=== PATIENT | male | born 1980 | race Caucasian/White ===

== ENCOUNTER 2017-05-09 18:31 | Emergency (ER) | payer BC, OTHER ==
[2017-05-09] MEDS ORDERED: ALPRAZolam 0.5 MG Tab PO ONE (19:26)
--- NOTE | 2017-05-09 19:31 | EDM.PDOCBH ---
ED HPI GENERAL MEDICAL PROBLEM - General Chief Complaint: Behavioral/Psych Stated Complaint: PANIC ATTACK Time Seen by Provider: 05/09/17 19:13 Source of Information: Reports: Patient, RN Notes Reviewed - History of Present Illness INITIAL COMMENTS - FREE TEXT/NARRATIVE: HISTORY AND PHYSICAL: History of present illness: [36-year-old male with a history of PTSD depression and severe anxiety now presents to the emergency department complaining of attack of anxiety and panic after having a nightmare. Patient does night shifts. He was sleeping earlier today when he had a nightmare and awakened and panic. He's been unable to relax so he came to the emergency department. Patient states he is depressed consistent with his baseline but is not suicidal. He is not abusing drugs he has not overdosed or injured himself in any way. Patient states he is able to function but he just been unable to relax since that event. He describes he seen at the [facility] and they are not willing to prescribe him any medications for his anxiety other than his antidepressant regimen. Review of systems: As per history of present illness and below otherwise all systems reviewed and negative. Past medical history: As per history of present illness and as reviewed below otherwise noncontributory. Surgical history: As per history of present illness and as reviewed below otherwise noncontributory. Social history: No reported history of drug or alcohol abuse. Family history: As per history of present illness and as reviewed below otherwise noncontributory. Physical exam: Anxious appearing 36-year-old male in no acute distress alert communicative cooperative but visibly anxious. Patient is a nonfocal exam including extended neuro exam. No evidence of self injury HEENT: Atraumatic, normocephalic, pupils reactive, negative for conjunctival pallor or scleral icterus, mucous membranes moist, throat clear, neck supple, nontender, trachea midline. Lungs: Clear to auscultation, breath sounds equal bilaterally, chest nontender. Heart: S1S2, regular, negative for clicks, rubs, or JVD. Abdomen: Soft, nondistended, nontender. Negative for masses or hepatosplenomegaly. Negative for costovertebral tenderness. Pelvis: Stable nontender. Genitourinary: Deferred. Rectal: Deferred. Extremities: Atraumatic, negative for cords or calf pain. Neurovascular unremarkable. Neuro: Awake, alert, oriented. Cranial nerves II through XII unremarkable. Cerebellum unremarkable. Motor and sensory unremarkable throughout. Exam nonfocal. Diagnostics: [] Therapeutics: []Xanax by mouth Impression: [] Plan: [Signs and symptoms consistent with exacerbation of anxiety in a patient with a known history of the same. Xanax given in ED. Patient aware not to drive. Discussed with patient will give prescription for 5 pills of (.5)Mg Xanax to use only as needed for severe anxiety unrelieved by conscious efforts to relax and other medications in his regimen. No further workup or treatment indicated. He agrees the patient follow-up and strict return precautions given Definitive disposition and diagnosis as appropriate pending reevaluation and review of above. throat Pain Score (Numeric/FACES): 5 - Related Data Allergies Allergy/AdvReac Type Severity Reaction Status Date / Time No Known Allergies Allergy Verified 05/09/17 18:43 Home Meds: Home Meds ALPRAZolam [Xanax] 0.5 mg PO BEDTIME PRN #5 tablet 05/09/17 [Rx] Past Medical History Psychiatric History: Reports: Depression, PTSD Oncologic (Cancer) History: Reports: Other (See Below) Other Oncologic History: CA - Infectious Disease History Infectious Disease History: Reports: Chicken Pox - Past Surgical History Male Surgical History: Reports: Other (See Below) Other Male Surgeries/Procedures: testicular removal for CA Social & Family History - Family History Family Medical History: Noncontributory - Tobacco Use Years of Tobacco use: 17 Packs/Tins Daily: 1.5 - Caffeine Use Caffeine Use: Reports: Coffee - Recreational Drug Use Recreational Drug Use: No ED ROS GENERAL - Review of Systems Review Of Systems: See Below (History of present illness) ED EXAM, BEHAVIORAL HEALTH - Physical Exam Exam: See Below (History of present illness) COURSE, BEHAVIORAL HEALTH COMP - Course Vital Signs: Last Vital Signs Temp 37.1 C 05/09/17 18:44 Pulse 77 05/09/17 18:44 Resp 16 05/09/17 18:44 BP 159/103 H 05/09/17 18:44 Pulse Ox 96 05/09/17 18:44 Orders, Labs, Meds: Medications Discontinued Medications Generic Name Dose Route Start Last Admin Trade Name Freq PRN Reason Stop Dose Admin Alprazolam 1 mg 05/09/17 19:26 05/09/17 19:31 Xanax PO 05/09/17 19:27 1 mg NOW ONE Administration Departure - Departure Time of Disposition: 19:27 Disposition: Home, Self-Care 01 Condition: Good Clinical Impression: Anxiety, Panic disorder - Discharge Information Prescriptions: ALPRAZolam [Xanax] 0.5 mg PO BEDTIME PRN #5 tablet PRN Reason: Anxiety Instructions: Panic Attacks, [id number] Referrals: PCP,None [Primary Care Provider] - Forms: ED Department Discharge Additional Instructions: You suffer from anxiety and panic disorder. The nightmare that you experience precipitated a panic attack. We've given you a dose of Xanax a benzodiazepine to help you relax and to relieve your anxiety.. We have Given you a prescription for 5 Xanax. Take 1 as needed only when you're having a panic attack which will not resolve with a conscious effort to calm yourself through meditation and deep breathing. Follow-up with your Dr. to discuss whether a small dose of benzodiazepine might be useful for you for use as needed when you might otherwise have to come to the emergency department for your panic and anxiety. Return immediately for new severe or worsening symptoms or if you think you may be a danger to yourself or others
[2017-05-09 20:14] VITALS: BP 149/108
== END 2017-05-09 20:00 | disposition home or self-care (01) ==
LOC: MW.ED 18:31
DX: F41.0 Panic disorder [episodic paroxysmal anxiety] (principal)
CPT/HCPCS: 99283; A9270; 99282

== ENCOUNTER 2017-05-25 09:37 | Emergency (ER) | payer OTHER ==
--- NOTE | 2017-05-25 10:20 | EDM.PDOC ---
ED HPI GENERAL MEDICAL PROBLEM - General Chief Complaint: ENT Problem Stated Complaint: THROAT SOLLOWEN Time Seen by Provider: 05/25/17 10:00 Source of Information: Reports: Patient History Limitations: Reports: No Limitations - History of Present Illness INITIAL COMMENTS - FREE TEXT/NARRATIVE: HISTORY AND PHYSICAL: History of present illness: 36-year-old male presenting with a past medical history significant for anxiety, PTSD, ENT related issues. Patient states that he is having difficulty swallowing, unable to intake solid foods. Patient states that this has been going on for the past 2 years. He has been evaluated multiple times however he has yet to see an ENT specialist for his related issues. Patient states that yesterday evening while driving he started to have difficulty swallowing, and breathing. He did not have any anxiety related medication. The difficulty swallowing and breathing alleviated after short while. Then again this morning he had difficulty swallowing which is similar to what he's been expressing for the past 2 years. She states that he is to see a [place] physician this Thursday for his ENT related problems. Patient denies any change in voice/hot potato type voice, trismus, drooling, no fevers, chills, and nausea, vomiting, diarrhea, constipation. Patient denies any shortness of breath wheezing. Patient denies being on any medication. Patient denies smoking, alcohol, illicit drug use recently. Patient states that he had similar problems back in April when he was seen in the ER for anxiety and difficulty swallowing he was given Xanax a short-term course which did help him, however due to his work schedule he was unable to see her primary care physician until 29 May. Review of systems: As per history of present illness and below otherwise all systems reviewed and negative. Past medical history: As per history of present illness and as reviewed below otherwise noncontributory. Surgical history: As per history of present illness and as reviewed below otherwise noncontributory. Social history: No reported history of drug or alcohol abuse. Family history: As per history of present illness and as reviewed below otherwise noncontributory. Physical exam: HEENT: Atraumatic, normocephalic, pupils reactive, negative for conjunctival pallor or scleral icterus, mucous membranes moist, throat clear, neck supple, nontender, trachea midline. No trismus, drooling, hot potato voice, erythema/ pharyngitis appreciated Lungs: Clear to auscultation, breath sounds equal bilaterally, chest nontender. Heart: S1S2, regular, negative for clicks, rubs, or JVD. Abdomen: Soft, nondistended, nontender. Negative for masses or hepatosplenomegaly. Negative for costovertebral tenderness. Extremities: Atraumatic, negative for cords or calf pain. Neurovascular unremarkable. Neuro: Awake, alert, oriented. Cranial nerves II through XII unremarkable. Cerebellum unremarkable. Motor and sensory unremarkable throughout. Exam nonfocal. Diagnostics: Therapeutics: Impression: 36-year-old male with significant past medical history of anxiety and PTSD not on any anxiety medication at the moment presenting with ongoing complaints of difficulty swallowing, issue is chronic in nature, most likely etiology is difficulty swallowing secondary to anxiety displaced on patient not having any presenting symptoms of trismus, drooling, change in voice, fevers, or any other systemic findings. Plan: Patient to follow-up with primary care physician in [place], as well as referral to ENT. I will give the patient Xanax for his anxiety 0.5 mg for 4 days up until he sees a physician in [place] as this did help him when he was previously seen in the ER in April. I will have emphasized to the patient that he must see an ENT specialist in order to have his difficulty swallowing issues fully assessed and diagnosed. I have set up an appointment for the patient to see Dr. Rosy Mcadams who is an ENT specialist here in [place]. Definitive disposition and diagnosis as appropriate pending reevaluation and review of above. Throat Pain Score (Numeric/FACES): 7 - Related Data Allergies Allergy/AdvReac Type Severity Reaction Status Date / Time No Known Allergies Allergy Verified 05/25/17 09:52 Home Meds: Home Meds ALPRAZolam [Xanax] 0.5 mg PO Q8HR PRN #16 tablet 05/25/17 [Rx] Past Medical History - Past Health History Medical/Surgical History: Denies Medical/Surgical History Psychiatric History: Reports: Depression, PTSD Oncologic (Cancer) History: Reports: Other (See Below) Other Oncologic History: CA - Infectious Disease History Infectious Disease History: Reports: Chicken Pox - Past Surgical History Male Surgical History: Reports: Other (See Below) Other Male Surgeries/Procedures: testicular removal for CA Social & Family History - Family History Family Medical History: Noncontributory - Tobacco Use Smoking Status *Q: Current Every Day Smoker Years of Tobacco use: 17 Packs/Tins Daily: 1 - Caffeine Use Caffeine Use: Reports: Coffee - Recreational Drug Use Recreational Drug Use: No ED ROS ENT - Review of Systems Review Of Systems: ROS reveals no pertinent complaints other than HPI. ED EXAM, ENT - Physical Exam Exam: See Below (Please refer to history of presenting illness) Course - Vital Signs Last Recorded V/S: Last Vital Signs Temp 36.5 C 05/25/17 09:54 Pulse 62 05/25/17 09:54 Resp 16 05/25/17 09:54 BP 154/108 H 05/25/17 09:54 Pulse Ox 98 05/25/17 09:54 Departure - Departure Time of Disposition: 10:35 Disposition: Home, Self-Care 01 Condition: Good Clinical Impression: Anxiety, Panic disorder [episodic paroxysmal anxiety], Swallowing difficulty - Discharge Information Prescriptions: ALPRAZolam [Xanax] 0.5 mg PO Q8HR PRN #16 tablet PRN Reason: Anxiety Referrals: PCP,None [Primary Care Provider] - Rosy Mcadams MD [Physician] - Forms: ED Department Discharge Additional Instructions: The following information is given to patients seen in the emergency department who are being discharged to home. This information is to outline your options for follow-up care. We provide all patients seen in our emergency department with a follow-up referral. The need for follow-up, as well as the timing and circumstances, are variable depending upon the specifics of your emergency department visit. If you don't have a primary care physician on staff, we will provide you with a referral. We always advise you to contact your personal physician following an emergency department visit to inform them of the circumstance of the visit and for follow-up with them and/or the need for any referrals to a consulting specialist. The emergency department will also refer you to a specialist when appropriate. This referral assures that you have the opportunity for follow-up care with a specialist. All of these measure are taken in an effort to provide you with optimal care, which includes your follow-up. Under all circumstances we always encourage you to contact your private physician who remains a resource for coordinating your care. When calling for follow-up care, please make the office aware that this follow-up is from your recent emergency room visit. If for any reason you are refused follow-up, please contact the [facility] Emergency Department at and asked to speak to the emergency department charge nurse. Diagnosis: Difficulty swallowing/anxiety Impressions: Based on your history and physical examination and presenting symptoms it seems that most likely your etiology is either ENT related or anxiety you need to follow-up with the ENT specialist in order to fully assess your difficulty swallowing symptoms. I am prescribing for use Xanax that you can take every 6-8 hours as needed for anxiety related attacks. Please realize that benzodiazepines such as Xanax can cause drowsiness and so please be careful and avoid any concentration related activities as these can be hindered when you take Xanax. Please make sure to follow up with your primary care appointment in [place] on 29 May 2017. Your also being set up with an appointment with Dr. Rosy Mcadams who is a ENT specialist here at [facility] at the [facility].
[2017-05-25 10:52] VITALS: BP 132/97
== END 2017-05-25 10:50 | disposition home or self-care (01) ==
LOC: MW.ED 09:37
DX: R13.0 Aphagia (principal); F41.9 Anxiety disorder, unspecified; F32.9 Major depressive disorder, single episode, unspecified; F17.210 Nicotine dependence, cigarettes, uncomplicated; Z85.47 Personal history of malignant neoplasm of testis; Z90.79 Acquired absence of other genital organ(s)
CPT/HCPCS: 99282; 99283

== ENCOUNTER 2017-06-16 14:08 | Emergency (ER) | payer OTHER ==
--- NOTE | 2017-06-16 15:09 | EDM.PDOCBH ---
ED HPI GENERAL MEDICAL PROBLEM - General Chief Complaint: Behavioral/Psych Stated Complaint: PANIC ATTACK/ANXIETY Time Seen by Provider: 06/16/17 14:53 Source of Information: Reports: Patient History Limitations: Reports: No Limitations - History of Present Illness INITIAL COMMENTS - FREE TEXT/NARRATIVE: HISTORY AND PHYSICAL: History of present illness: Patient is a 36-year-old male who presents to the emergency room with complaints of anxiety attacks. Patient reports that he was discharged from the approximately 7 years ago and since that time has had PTSD and anxiety. He has seen a provider on and off and reports that he has not been given proper treatment. Recently was seen in the emergency room and prescribed Xanax 0.5 mg every 8 hours and states that this has been the only medication he has taken over the past 7 years that seems to help decrease his panic attacks. He had ran out of this medication approximately 3 days ago and now his attacks have returned. He states without this medication he is having 10 episodes per day, lasting anywhere from 15 minutes to several hours at a time. During these attacks he reports he feels chest tightness tightness around his throat with difficulty swallowing and reports feeling like he losing bodily functions. Patient states he does see the [facility] routinely but they will not prescribe this medication as a state too many personnel have been abusing these medications. Patient denies any thoughts of self-harm or harm of others. Review of systems: As per history of present illness and below otherwise all systems reviewed and negative. Past medical history: As per history of present illness and as reviewed below otherwise noncontributory. Surgical history: As per history of present illness and as reviewed below otherwise noncontributory. Social history: No reported history of drug or alcohol abuse. Family history: As per history of present illness and as reviewed below otherwise noncontributory. Physical exam: HEENT: Atraumatic, normocephalic, pupils reactive, negative for conjunctival pallor or scleral icterus, mucous membranes moist, throat clear, neck supple, nontender, trachea midline. Lungs: Clear to auscultation, breath sounds equal bilaterally, chest nontender. Heart: S1S2, regular, negative for clicks, rubs, or JVD. Abdomen: Soft, nondistended, nontender. Negative for masses or hepatosplenomegaly. Negative for costovertebral tenderness. Pelvis: Stable nontender. Genitourinary: Deferred. Rectal: Deferred. Extremities: Atraumatic, negative for cords or calf pain. Neurovascular unremarkable. Neuro: Awake, alert, oriented. Cranial nerves II through XII unremarkable. Cerebellum unremarkable. Motor and sensory unremarkable throughout. Exam nonfocal. Discussed with patient possible diagnostic testing that can be done to the emergency room. He states that there are no new symptoms since being evaluated multiple times by this ER and other providers. He declines any labs or imaging at this time. He states he would like a refill on his Xanax until he is able to see Dr. Goodman, her nursing staff is attempting to get him an appointment that is flexible with his work schedule. Diagnostics: [] Therapeutics: [] Impression: PTSD, anxiety Plan: 1. Limited amount of Xanax has been prescribed to you (0.5mg every 8 hours PRN - Disp #6 tabs). Please take this medication as directed. 2. Appointment has been made for you with the residency clinic for June 25 at 10:30. 3. Please return to the ED as needed and as discussed. Definitive disposition and diagnosis as appropriate pending reevaluation and review of above. Throat Pain Score (Numeric/FACES): 5 - Related Data Allergies Allergy/AdvReac Type Severity Reaction Status Date / Time No Known Allergies Allergy Verified 06/16/17 14:30 Home Meds: Home Meds . [No Known Home Meds] 06/16/17 [History] Past Medical History - Past Health History Medical/Surgical History: Denies Medical/Surgical History Psychiatric History: Reports: Depression, PTSD Oncologic (Cancer) History: Reports: Other (See Below) Other Oncologic History: CA - Infectious Disease History Infectious Disease History: Reports: Chicken Pox - Past Surgical History Male Surgical History: Reports: Other (See Below) Other Male Surgeries/Procedures: testicular removal for CA Social & Family History - Family History Family Medical History: Noncontributory - Tobacco Use Smoking Status *Q: Current Every Day Smoker Years of Tobacco use: 17 Packs/Tins Daily: 1 - Caffeine Use Caffeine Use: Reports: Coffee - Recreational Drug Use Recreational Drug Use: No ED ROS GENERAL - Review of Systems Review Of Systems: ROS reveals no pertinent complaints other than HPI. ED EXAM, BEHAVIORAL HEALTH - Physical Exam Exam: See Below (See dictation) COURSE, BEHAVIORAL HEALTH COMP - Course Vital Signs: Last Vital Signs Temp 37.2 C 06/16/17 14:24 Pulse 82 06/16/17 14:24 Resp 12 06/16/17 14:24 BP 136/103 H 06/16/17 14:24 Pulse Ox 96 06/16/17 14:24 Departure - Departure Time of Disposition: 15:39 Disposition: Home, Self-Care 01 Clinical Impression: Anxiety - Discharge Information Referrals: PCP,None [Primary Care Provider] - Forms: ED Department Discharge Additional Instructions: My general discharge The following information is given to patients seen in the emergency department who are being discharged to home. This information is to outline your options for follow-up care. We provide all patients seen in our emergency department with a follow-up referral. The need for follow-up, as well as the timing and circumstances, are variable depending upon the specifics of your emergency department visit. If you don't have a primary care physician on staff, we will provide you with a referral. We always advise you to contact your personal physician following an emergency department visit to inform them of the circumstance of the visit and for follow-up with them and/or the need for any referrals to a consulting specialist. The emergency department will also refer you to a specialist when appropriate. This referral assures that you have the opportunity for follow-up care with a specialist. All of these measure are taken in an effort to provide you with optimal care, which includes your follow-up. Under all circumstances we always encourage you to contact your private physician who remains a resource for coordinating your care. When calling for follow-up care, please make the office aware that this follow-up is from your recent emergency room visit. If for any reason you are refused follow-up, please contact the [facility] Emergency Department at and asked to speak to the emergency department charge nurse. [facility] [address] [place] [id number] 1. Limited amount of Xanax has been prescribed to you (0.5mg every 8 hours PRN - Disp #6 tabs). Please take this medication as needed and as directed. 2. Appointment has been made for you with the residency clinic for June 25 at 10:30. 3. Please return to the ED as needed and as discussed.
[2017-06-16 15:48] VITALS: BP 150/88
== END 2017-06-16 15:48 | disposition home or self-care (01) ==
LOC: MW.ED 14:08
DX: F43.10 Post-traumatic stress disorder, unspecified (principal); F41.9 Anxiety disorder, unspecified; F17.210 Nicotine dependence, cigarettes, uncomplicated
CPT/HCPCS: 99283

== ENCOUNTER 2017-07-07 18:17 | Emergency (ER) | payer OTHER ==
[2017-07-07] MEDS ORDERED: Ketorolac 30 MG/ML SDV IVPUSH ONE (18:35)
[2017-07-07] MEDS ORDERED: Sodium Chloride 0.9% 1,000 ML IV ONE (18:35)
[2017-07-07] MEDS ORDERED: Ondansetron 4 MG/2 ML SDV IVPUSH ONE (18:35)
--- NOTE | 2017-07-07 18:58 | EDM.PDOC ---
ED HPI GENERAL MEDICAL PROBLEM - General Chief Complaint: Abdominal Pain Stated Complaint: PT HAS STOMACH PAINS Time Seen by Provider: 07/07/17 18:31 Source of Information: Reports: Patient History Limitations: Reports: No Limitations - History of Present Illness INITIAL COMMENTS - FREE TEXT/NARRATIVE: HISTORY AND PHYSICAL: History of present illness: Patient is a 36-year-old male who presents to the emergency room with complaints of left lower abdominal pain 3 days. He states that the left lower quadrant radiates into the groin and today while getting ready for work he heard a "pop". States he has had nausea and diarrhea over the past 3 days as well. Eyes any previous history of hernia and does not note any bulging in the groin. Patient has no difficulty with urination, denies dysuria, or starting his stream. No testicular swelling or redness. Review of systems: As per history of present illness and below otherwise all systems reviewed and negative. Past medical history: As per history of present illness and as reviewed below otherwise noncontributory. Surgical history: As per history of present illness and as reviewed below otherwise noncontributory. Social history: No reported history of drug or alcohol abuse. Family history: As per history of present illness and as reviewed below otherwise noncontributory. Physical exam: Gen.: Well-developed and well-nourished 36-year-old male. Appears nontoxic and in no acute distress. Alert and oriented. HEENT: Atraumatic, normocephalic, pupils reactive, negative for conjunctival pallor or scleral icterus, mucous membranes moist, throat clear, neck supple, nontender, trachea midline. Lungs: Clear to auscultation, breath sounds equal bilaterally, chest nontender. Heart: S1S2, regular rate and rhythm Abdomen: Soft, nondistended, left lower quadrant tenderness. Negative for masses or hepatosplenomegaly. Negative for costovertebral tenderness. Pelvis: Stable nontender. Genitourinary: Deferred. Rectal: Deferred. Extremities: Atraumatic, negative for cords or calf pain. Neurovascular unremarkable. Neuro: Awake, alert, oriented. Cranial nerves II through XII unremarkable. Cerebellum unremarkable. Motor and sensory unremarkable throughout. Exam nonfocal. CT of the abdomen and pelvis shows fat stranding which is suggestive of epiploic appendicitis. Lab work is unremarkable. Labs were unremarkable. Was discussed with the patient. I will prescribe antinausea, Zofran, and [place] for home use. We did discuss follow-up with his primary care provider and signs and symptoms that he needs to monitor for that would prompt him to come back to the emergency room. Patient is agreeable and voices understanding. He denies any further questions at this time. Diagnostics: CBC, CMP, amylase, lipase, UA, CT abdomen and pelvis Therapeutics: IV fluid, Zofran, Toradol Impression: Impression: Epiploic appendagitis Plan: 1. Please take your medications as prescribed. The [place] should be taken while not having to drive or while at work, as this can cause drowsiness. Zofran has been prescribed for nausea. Diet as tolerated. 2. Follow-up with your primary care provider in the next 1-2 days. Return to the ED as needed and as discussed. Definitive disposition and diagnosis as appropriate pending reevaluation and review of above. Duration: Day(s): (3) Location: Reports: Abdomen Left Upper Abdomen Pain Score (Numeric/FACES): 8 - Related Data Allergies Allergy/AdvReac Type Severity Reaction Status Date / Time No Known Allergies Allergy Verified 07/07/17 18:22 Home Meds: Home Meds . [No Known Home Meds] 06/16/17 [History] Past Medical History - Past Health History Medical/Surgical History: Denies Medical/Surgical History HEENT History: Reports: None Cardiovascular History: Reports: None Respiratory History: Reports: Other (See Below) Other Respiratory History: persistent cough Gastrointestinal History: Reports: None Genitourinary History: Reports: None Musculoskeletal History: Reports: None Neurological History: Reports: None Psychiatric History: Reports: Depression, PTSD Endocrine/Metabolic History: Reports: None Hematologic History: Reports: None Immunologic History: Reports: None Oncologic (Cancer) History: Reports: Other (See Below) Other Oncologic History: CA Dermatologic History: Reports: None - Infectious Disease History Infectious Disease History: Reports: Chicken Pox - Past Surgical History Head Surgeries/Procedures: Reports: None HEENT Surgical History: Reports: None Cardiovascular Surgical History: Reports: None Respiratory Surgical History: Reports: None GI Surgical History: Reports: None Male Surgical History: Reports: Other (See Below) Other Male Surgeries/Procedures: testicular removal for CA Endocrine Surgical History: Reports: None Neurological Surgical History: Reports: None Musculoskeletal Surgical History: Reports: None Dermatological Surgical History: Reports: None Social & Family History - Family History Family Medical History: Noncontributory - Tobacco Use Smoking Status *Q: Never Smoker Years of Tobacco use: 17 Packs/Tins Daily: 1 - Caffeine Use Caffeine Use: Reports: Coffee, Soda, Tea - Recreational Drug Use Recreational Drug Use: No ED ROS GENERAL - Review of Systems Review Of Systems: ROS reveals no pertinent complaints other than HPI. ED EXAM, GI/ABD - Physical Exam Exam: See Below (See dictation) Course - Vital Signs Last Recorded V/S: Last Vital Signs Temp 36.7 C 07/07/17 18:22 Pulse 84 07/07/17 18:22 Resp 18 07/07/17 18:22 BP 140/102 H 07/07/17 18:22 Pulse Ox 95 07/07/17 18:22 - Orders/Labs/Meds Orders: Active Orders 24 hr Category Date Time Status Abdomen Pelvis w Cont [CT] Stat Exams 07/07/17 18:35 Taken Labs: Laboratory Tests 07/07/17 07/07/17 07/07/17 Range/Units 18:54 18:54 18:54 WBC 8.35 (4.0-11.0) K/uL RBC 4.70 (4.50-5.90) M/uL Hgb 15.4 (13.0-17.0) g/dL Hct 43.4 (38.0-50.0) % MCV 92.3 (80.0-98.0) fL MCH 32.8 H (27.0-32.0) pg MCHC 35.5 (31.0-37.0) g/dL RDW Std Deviation 40.8 (28.0-62.0) fl RDW Coeff of Kieran 12 (11.0-15.0) % Plt Count 340 (150-400) K/uL MPV 9.90 (7.40-12.00) fL Neut % (Auto) 61.2 (48.0-80.0) % Lymph % (Auto) 28.3 (16.0-40.0) % [place] % (Auto) 9.3 (0.0-15.0) % Eos % (Auto) 0.8 (0.0-7.0) % Baso % (Auto) 0.4 (0.0-1.5) % Neut # (Auto) 5.1 (1.4-5.7) K/uL Lymph # (Auto) 2.4 (0.6-2.4) K/uL [place] # (Auto) 0.8 (0.0-0.8) K/uL Eos # (Auto) 0.1 (0.0-0.7) K/uL Baso # (Auto) 0.0 (0.0-0.1) K/uL Nucleated RBC % 0.0 /100WBC Nucleated RBCs # 0 K/uL Sodium 138 (136-146) mmol/L Potassium 3.8 (3.5-5.1) mmol/L Chloride 108 (98-110) mmol/L Carbon Dioxide 23 (21-31) mmol/L BUN 6 (6.0-23.0) mg/dL Creatinine 1.1 (0.6-1.5) mg/dL Est Cr Clr Drug Dosing TNP Estimated GFR (MDRD) > 60.0 ml/min Glucose 96 (60-110) mg/dL Calcium 9.3 (8.8-10.8) mg/dL Total Bilirubin 0.6 (0.1-1.5) mg/dL AST 23 (5-40) IU/L ALT 38 (8-54) IU/L Alkaline Phosphatase 95 (40-150) Total Protein 7.0 (6.0-8.0) g/dL Albumin 4.0 (3.5-5.0) g/dL Globulin 3.0 (2.0-3.5) g/dL Albumin/Globulin Ratio 1.3 (1.3-2.8) Amylase 51 (10-90) U/L Lipase 14 (7-80) U/L Urine Color Urine Appearance Urine pH (5.0-8.0) Ur Specific [place] (1.001-1.035) Urine Protein (NEGATIVE) mg/dL Urine Glucose (UA) (NEGATIVE) mg/dL Urine Ketones (NEGATIVE) mg/dL Urine Occult Blood (NEGATIVE) Urine Nitrite (NEGATIVE) Urine Bilirubin (NEGATIVE) Urine Urobilinogen (<2.0) EU/dL Ur Leukocyte Esterase (NEGATIVE) Urine RBC (0-2/HPF) Urine WBC (0-5/HPF) Ur Epithelial Cells (NONE-FEW) Urine Bacteria (NEGATIVE) H. pylori IgG Antibody NEGATIVE (NEG) 07/07/17 Range/Units 20:12 WBC (4.0-11.0) K/uL RBC (4.50-5.90) M/uL Hgb (13.0-17.0) g/dL Hct (38.0-50.0) % MCV (80.0-98.0) fL MCH (27.0-32.0) pg MCHC (31.0-37.0) g/dL RDW Std Deviation (28.0-62.0) fl RDW Coeff of Kieran (11.0-15.0) % Plt Count (150-400) K/uL MPV (7.40-12.00) fL Neut % (Auto) (48.0-80.0) % Lymph % (Auto) (16.0-40.0) % [place] % (Auto) (0.0-15.0) % Eos % (Auto) (0.0-7.0) % Baso % (Auto) (0.0-1.5) % Neut # (Auto) (1.4-5.7) K/uL Lymph # (Auto) (0.6-2.4) K/uL [place] # (Auto) (0.0-0.8) K/uL Eos # (Auto) (0.0-0.7) K/uL Baso # (Auto) (0.0-0.1) K/uL Nucleated RBC % /100WBC Nucleated RBCs # K/uL Sodium (136-146) mmol/L Potassium (3.5-5.1) mmol/L Chloride (98-110) mmol/L Carbon Dioxide (21-31) mmol/L BUN (6.0-23.0) mg/dL Creatinine (0.6-1.5) mg/dL Est Cr Clr Drug Dosing Estimated GFR (MDRD) ml/min Glucose (60-110) mg/dL Calcium (8.8-10.8) mg/dL Total Bilirubin (0.1-1.5) mg/dL AST (5-40) IU/L ALT (8-54) IU/L Alkaline Phosphatase (40-150) Total Protein (6.0-8.0) g/dL Albumin (3.5-5.0) g/dL Globulin (2.0-3.5) g/dL Albumin/Globulin Ratio (1.3-2.8) Amylase (10-90) U/L Lipase (7-80) U/L Urine Color YELLOW Urine Appearance CLEAR Urine pH 7.0 (5.0-8.0) Ur Specific [place] 1.010 (1.001-1.035) Urine Protein NEGATIVE (NEGATIVE) mg/dL Urine Glucose (UA) NEGATIVE (NEGATIVE) mg/dL Urine Ketones NEGATIVE (NEGATIVE) mg/dL Urine Occult Blood NEGATIVE (NEGATIVE) Urine Nitrite NEGATIVE (NEGATIVE) Urine Bilirubin NEGATIVE (NEGATIVE) Urine Urobilinogen 0.2 (<2.0) EU/dL Ur Leukocyte Esterase NEGATIVE (NEGATIVE) Urine RBC 0-1 (0-2/HPF) Urine WBC 0-1 (0-5/HPF) Ur Epithelial Cells RARE (NONE-FEW) Urine Bacteria RARE (NEGATIVE) H. pylori IgG Antibody (NEG) Meds: Medications Discontinued Medications Generic Name Dose Route Start Last Admin Trade Name Juanq PRN Reason Stop Dose Admin Sodium Chloride 1,000 mls @ 999 mls/hr 07/07/17 18:35 07/07/17 19:15 Normal Saline IV 07/07/17 19:35 999 mls/hr STAT ONE Administration Ketorolac Tromethamine 30 mg 07/07/17 18:35 07/07/17 19:15 Toradol IVPUSH 07/07/17 18:36 30 mg ONETIME ONE Administration Morphine Sulfate 4 mg 07/07/17 20:25 07/07/17 20:30 Morphine IVPUSH 07/07/17 20:26 4 mg ONETIME ONE Administration Ondansetron HCl 4 mg 07/07/17 18:35 07/07/17 19:15 Zofran IVPUSH 07/07/17 18:36 4 mg ONETIME ONE Administration Departure - Departure Time of Disposition: 20:39 Disposition: Home, Self-Care 01 Clinical Impression: Epiploic appendagitis - Discharge Information Forms: ED Department Discharge Additional Instructions: My general discharge The following information is given to patients seen in the emergency department who are being discharged to home. This information is to outline your options for follow-up care. We provide all patients seen in our emergency department with a follow-up referral. The need for follow-up, as well as the timing and circumstances, are variable depending upon the specifics of your emergency department visit. If you don't have a primary care physician on staff, we will provide you with a referral. We always advise you to contact your personal physician following an emergency department visit to inform them of the circumstance of the visit and for follow-up with them and/or the need for any referrals to a consulting specialist. The emergency department will also refer you to a specialist when appropriate. This referral assures that you have the opportunity for follow-up care with a specialist. All of these measure are taken in an effort to provide you with optimal care, which includes your follow-up. Under all circumstances we always encourage you to contact your private physician who remains a resource for coordinating your care. When calling for follow-up care, please make the office aware that this follow-up is from your recent emergency room visit. If for any reason you are refused follow-up, please contact the [facility] Emergency Department at and asked to speak to the emergency department charge nurse. [facility] [address] [place] [address] 1. Please take your medications as prescribed. The [place] should be taken while not having to drive or while at work, as this can cause drowsiness. Zofran has been prescribed for nausea. Diet as tolerated. 2. Follow-up with your primary care provider in the next 1-2 days. Return to the ED as needed and as discussed. - My Orders Last 24 Hours: My Active Orders 07/07/17 18:35 Abdomen Pelvis w Cont [CT] Stat - Assessment/Plan Last 24 Hours: My Active Orders 07/07/17 18:35 Abdomen Pelvis w Cont [CT] Stat
[2017-07-07 19:22] LABS: CHLORIDE,CL 108 mmol/L (98-110); SODIUM,NA 138 mmol/L (136-146)
[2017-07-07] MEDS ORDERED: Morphine 4 MG/ML Syringe IVPUSH ONE (20:25)
[2017-07-07] MEDS ORDERED: Iopamidol 755 Mg/ML 100 ML Bottle IVPUSH STA (21:36)
[2017-07-07 22:17] VITALS: BP 149/108
--- NOTE | 2017-07-08 11:01 | CT ---
EXAM DATE: 07/07/17 PATIENT'S AGE: 36 Patient: RAZ BRODY Facility: [place], [place] Site . Site : [id number] Study: CT Abdomen/Pelvis [id number]/28/2017 7:57:04 PM Ordering Physician: Doctor St Final Report: INDICATION: Left-sided abdominal pain for 3 days. History of testicular carcinoma. Right testis removed. Technique: CT abdomen and pelvis performed after IV injection of 100 mL of [id number]. Findings: No metastatic disease in the abdomen or pelvis. Small cyst in the right hepatic lobe. The right testicle is surgically absent. Small amount of inflammatory stranding in the fat anterior to the distal descending colon is fairly focal. No diverticula in this region and the wall of the colon although mildly prominent is likely mildly prominent due to incomplete distention. The findings would be consistent with a mild acute inflammatory process and without definitive adjacent colonic pathology are suggestive of acute epiploic appendagitis. The typical fat-density associated with this stranding is not is discernible as typical but I suspect this is the most likely diagnosis. An omental or abdominal fat infarct could cause a similar findings but is thought to be less likely. Heart size normal. Minimal increased density in the subcutaneous tissues of the anterior pelvic fat insignificant. Remainder negative. Impression: 1. Mild acute inflammatory process in the fat along the anterior aspect of the distal descending colon most likely related to acute epiploic appendagitis. 2. No metastatic disease in the abdomen pelvis after right orchiectomy for testicular carcinoma. Other findings as above. Please note that all CT scans at this facility use dose modulation, iterative reconstruction, and/or weight-based dosing when appropriate to reduce radiation dose to as low as reasonably achievable. Dictated by Jarad Antonio MD @ Jul 07 2017 8:16PM (Electronic Signature) Report Signed by Proxy. PAWLE
== END 2017-07-07 20:48 | disposition home or self-care (01) ==
LOC: MW.ED 18:17
DX: K63.89 Other specified diseases of intestine (principal)
CPT/HCPCS: 36415; 74177; 80053; 81001; 82150; 83690; 85025; 86677; 96361; 96374; 96375; 99284; J1885; J2270; J2405; J7040